=== PATIENT | female | born 1980 | race Two or more races ===

== ENCOUNTER → 2019-07-08 | Outpatient (CLI) | payer MEDICAID ==
--- NOTE | 2019-07-08 17:00 | RADIOLOGY REPORT (SQ) ---
EXAM DESCRIPTION: U/S NON-OB PELVIS TV W/O DOP COMPLETED DATE/TIME: 07/08/2019 4:50 pm REASON FOR STUDY: N93.9 ABNORMAL UTERINE AND VAGINAL BLEEDING, UNSPECIFIED N93.9 ABNORMAL UTERINE A ND VAGINAL BLEEDING, UNSPECIFIED COMPARISON: None. TECHNIQUE: Dynamic and static grayscale images acquired of the pelvis via transvaginal approach and recorded on PACS. Additional selected color Doppler and spectral images recorded. LIMITATIONS: Limited visualization of some structures secondary to overlying bowel gas and body habi tus. FINDINGS: UTERUS: Normal in size and contour measuring 9.0 x 3.3 x 4.1 cm. No focal lesions. . ENDOMETRIAL STRIPE: Endometrial stripe is visualized measuring 12 mm. No focal thickening. CERVIX: No nabothian cysts. RIGHT OVARY AND DOPPLER: Nonvisualized. LEFT OVARY AND DOPPLER: Nonvisualized. FREE FLUID: None noted. OTHER: No other significant finding. IMPRESSION: Limited exam secondary to overlying bowel gas and body habitus. 1. Unremarkable appearance of the uterus and endometrial stripe. 2. Ovaries not identified. TECHNICAL DOCUMENTATION: JOB ID: [id number] 2010 [employer]- All Rights Reserved Rev-09/25 Reading location - IP/workstation name: [email or web address]
== END ==
LOC: RAD 16:22
PROVIDERS: ATTEND Nurse Practitioner Family
DX: N93.8 Other specified abnormal uterine and vaginal bleeding (principal)
CPT/HCPCS: 76830